=== PATIENT | male | born 1960 | race Caucasian/White ===

== ENCOUNTER → 2017-01-11 | Outpatient (CLI) | payer BC ==
[~2017-01-11] MED LIST: ATOR10TA82 PO; GLIP10TA3 PO; LISI-729 PO; MELO7.5T5 PO; METF-384 PO
[2017-01-11 18:28] LABS: INR 1.1 (0.9-1.1)
== END | disposition home or self-care (01) ==
LOC: C.LABSPEC 17:58
PROVIDERS: ATTEND Family Medicine
DX: Z79.01 Long term (current) use of anticoagulants (principal)

== ENCOUNTER → 2017-04-26 | Outpatient (CLI) | payer BC ==
[~2017-04-26] MED LIST changes: -ATOR10TA82 PO; +ATOR10TA88 PO
[2017-04-26 19:18] LABS: RED BLOOD COUNT 5.21 M/uL (4.7-6.1); WHITE BLOOD COUNT 10.51 K/uL (4.8-10.8)
[2017-04-26 19:19] LABS: BASO % 0.3 %; BASO ABS # 0.03 K/uL (0-0.2); COMPLETE YES; HEMATOCRIT 44.6 % (42-52); LYMPH % 26.8 %; LYMPH ABS # 2.82 K/uL (1.2-3.4); MEAN CELL VOLUME 85.6 fL (80-100); MEAN CORPUSCULAR HEMOGLOBIN 28.8 pg (25-34); MEAN CORPUSCULAR HGB CONC 33.6 g/dl (32-36); MEAN PLATELET VOLUME 10.1 fL (7.4-10.4); MONO % 9.5 %; NEUT % 59.4 %; PLATELET COUNT 298 K/uL (130-400)
[2017-04-26 19:35] LABS: ALB/GLOB RATIO 1.1 (0.9-2); ALKALINE PHOSPHATASE 101 U/L (45-117); ALT/SGPT 30 U/L (12-78); AST/SGOT 17 U/L (15-37); BLOOD UREA NITROGEN 19 mg/dl (7-18); BUN/CREATININE RATIO 15.8 (10-20); CARBON DIOXIDE 25 mmol/L (21-32); CHLORIDE 102 mmol/L (98-107); CHOLESTEROL 161 mg/dl (0-200); CHOLESTEROL/HDL RATIO 3.8; GLUCOSE 195 mg/dl (70-99); HDL CHOLESTEROL 42 mg/dl; LDL CHOLESTEROL CALCULATED 65 mg/dl; POTASSIUM 4.6 mmol/L (3.5-5.1); SODIUM 137 mmol/L (136-145); TRIGLYCERIDES 271 mg/dl (0-150); VERY LOW DENSITY LIPOPROT CALC 54 mg/dl
[2017-04-27 06:24] LABS: ESTIMATED AVERAGE GLUCOSE 232 mg/dl; HA1C FLAG Normal (Normal)
== END | disposition home or self-care (01) ==
LOC: C.LABSPEC 18:02
PROVIDERS: ATTEND Family Medicine
DX: E11.9 Type 2 diabetes mellitus without complications (principal); E78.2 Mixed hyperlipidemia; I10 Essential (primary) hypertension

== ENCOUNTER → 2017-09-09 | Outpatient (CLI) | payer BC ==
[~2017-09-09] MED LIST changes: +ATOR10TA82 PO; -ATOR10TA88 PO
[2017-09-09 18:17] LABS: BASO % 0.3 %; BASO ABS # 0.03 K/uL (0-0.2); EOS % 2.7 %; EOS ABS # 0.28 K/uL (0-0.5); HEMATOCRIT 40.8 % (42-52); HEMOGLOBIN 13.8 g/dL (14.0-18.0); IG# 0.08 K/uL (0.00-0.02); LYMPH % 21.9 %; LYMPH ABS # 2.28 K/uL (1.2-3.4); MEAN CELL VOLUME 85.9 fL (80-100); MEAN CORPUSCULAR HEMOGLOBIN 29.1 pg (25-34); MEAN CORPUSCULAR HGB CONC 33.8 g/dl (32-36); MEAN PLATELET VOLUME 9.5 fL (7.4-10.4); MONO % 10.9 %; MONO ABS # 1.14 K/uL (0.11-0.59); NEUT % 63.4 %; NEUT ABS # 6.62 K/uL (1.4-6.5); PLATELET COUNT 276 K/uL (130-400); WHITE BLOOD COUNT 10.43 K/uL (4.8-10.8)
[2017-09-09 18:32] LABS: ALBUMIN 3.6 gm/dl (3.4-5.0); ALT/SGPT 33 U/L (12-78); BLOOD UREA NITROGEN 15 mg/dl (7-18); CARBON DIOXIDE 26 mmol/L (21-32); CHOLESTEROL 129 mg/dl (0-200); CREATININE 0.92 mg/dl (0.60-1.40); GLUCOSE 264 mg/dl (70-99); POTASSIUM 3.8 mmol/L (3.5-5.1); SODIUM 134 mmol/L (136-145)
[2017-09-09 18:35] LABS: ALKALINE PHOSPHATASE 106 U/L (45-117); AST/SGOT 16 U/L (15-37); LDL CHOLESTEROL CALCULATED 67 mg/dl
[2017-09-10 07:38] LABS: HEMOGLOBIN A1C 9.4 % (4.5-5.6)
== END | disposition home or self-care (01) ==
LOC: C.LABSPEC 18:03
PROVIDERS: ATTEND Family Medicine
DX: E11.9 Type 2 diabetes mellitus without complications (principal); I10 Essential (primary) hypertension; E78.2 Mixed hyperlipidemia

== ENCOUNTER → 2017-09-21 | Outpatient (CLI) | payer BC | END | disposition home or self-care (01) | LOC: C.LABSPEC 17:53 | PROVIDERS: ATTEND Family Medicine | DX: E11.9 Type 2 diabetes mellitus without complications (principal); I10 Essential (primary) hypertension; E78.2 Mixed hyperlipidemia ==

== ENCOUNTER 2023-08-13 07:07 | Observation (INO) ==
--- NOTE | 2023-07-12 11:06 | PAT Medication Instructions ---
Medication Instructions Date of Service July 12, 2023 Home Medications aspirin 81 mg tablet 81 mg PO QPM atorvastatin 10 mg tablet 10 mg PO PM glipizide 2.5 mg tablet 10 mg PO QAM insulin degludec 100 unit/mL subcutaneous solution (Tresiba U-100 Insulin) 90 unit subcut HS insulin lispro 100 unit/mL subcutaneous solution (Humalog U-100 Insulin) 30 unit subcut USEASDIRECTD lisinopril 5 mg tablet 5 mg PO QPM meloxicam 15 mg tablet 15 mg PO QAM metformin 1,000 mg tablet 1,000 mg PO BID tirzepatide 7.5 mg/0.5 mL subcutaneous pen injector (Mounjaro) 7.5 mg subcut WK STOP 7 days before surgery tirzepatide 7.5 mg/0.5 mL subcutaneous pen injector (Mounjaro) 7.5 mg subcut WK ASK your surgeon for instructions meloxicam 15 mg tablet 15 mg PO QAM ASK your prescriber and surgeon aspirin 81 mg tablet 81 mg PO QPM DO NOT take the morning of surgery glipizide 2.5 mg tablet 10 mg PO QAM insulin lispro 100 unit/mL subcutaneous solution (Humalog U-100 Insulin) 30 unit subcut USEASDIRECTD metformin 1,000 mg tablet 1,000 mg PO BID Take evening before surgery atorvastatin 10 mg tablet 10 mg PO PM insulin degludec 100 unit/mL subcutaneous solution (Tresiba U-100 Insulin) 90 unit subcut HS lisinopril 5 mg tablet 5 mg PO QPM metformin 1,000 mg tablet 1,000 mg PO BID Other Notes NOTHING TO EAT OR DRINK AFTER MIDNIGHT. If you have any questions please call us at [phone] or [phone] or or [phone]
--- NOTE | 2023-07-19 10:47 | Anesthesiology Consultation ---
Date of Service July 19, 2023 Assessment & Plan (1) Encounter for pre-operative examination: Chart Review Chart Review: Acceptable Risk for Surgery (pending cardio clearance ) and Patient seen in Pre Admission Testing - Discussed preop EKG with Dr. Cuba- recommends cardio evaluation- patient scheduled to see [facility] 08/06/23 at 1130am with Gold Calloway PA-C ([place] so information left with ) - Check BSG AM DOS - Mounjaro instructions: Patient takes on (Fridays). Patient informed at PAT visit to stop 7 days prior to surgery- voiced understanding. Patient advised to check with prescriber to see if alternative diabetic management changes recommended while holding Mounjaro- if so, patient to call back to PAT to update chart and discuss if any further preop medication instructions needed. Patient's last dose of Mounjaro will be 08/06/23- will be off Mounjaro x 7 days by DOS 08/13/23. - Patient is NOT an OPJ candidate Per PAT appt on 07/19/23, no recent illness/disease exposures, illness related symptoms, or recent illness/disease positive tests. Will leave to surgeon's discretion if preop Covid testing needed Teaching & Discussion Pre-Anesthesia Teaching/Discussion Notes: Instructed NPO after midnight before surgery,except medications with 15 cc of water. Medication instructions provided according to the [facility] guidelines. History Surgery Operation Date: 08/13/23 07:00 Proposed Procedures p Left Total Knee Arthroplasty - Ulises Gonzalez MD Height/Weight Height: 5 ft 11 in Weight: 154.9 kg Allergies Allergy/AdvReac Type Severity Reaction Status Date / Time amoxicillin Allergy Hives Verified 07/12/23 10:05 Medications Home Medications Medication Instructions Recorded Confirmed Last Taken aspirin 81 mg tablet 81 mg PO QPM 07/12/23 07/12/23 Unknown atorvastatin 10 mg tablet 10 mg PO PM 07/12/23 07/12/23 Unknown glipizide 2.5 mg tablet 10 mg PO QAM 07/12/23 07/12/23 Unknown insulin degludec 100 unit/mL 90 unit subcut HS 07/12/23 07/12/23 Unknown subcutaneous solution (Tresiba U-100 Insulin) insulin lispro 100 unit/mL 30 unit subcut USEASDIRECTD 07/12/23 07/12/23 Unknown subcutaneous solution (Humalog U-100 Insulin) lisinopril 5 mg tablet 5 mg PO QPM 07/12/23 07/12/23 Unknown meloxicam 15 mg tablet 15 mg PO QAM 07/12/23 07/12/23 Unknown metformin 1,000 mg tablet 1,000 mg PO BID 07/12/23 07/12/23 Unknown tirzepatide 7.5 mg/0.5 mL 7.5 mg subcut WK 07/12/23 07/12/23 Unknown subcutaneous pen injector (Mounjaro) Past Medical History Medical History (Updated 07/26/23 @ 13:55 by Lyndsay Miner PA-C) History of gout No recent flares Lower back pain Chronic HLD (hyperlipidemia) History of DVT (deep vein thrombosis) RLE approx 5 years ago. unk etiology. treated with AC x several months- now only on ASA 81mg. Sleep apnea CPAP DM type 2 (diabetes mellitus, type 2) Glucose controlled per patient Exercise / Class Metabolic Activity III < 4 Walking/Shop/Light housework (one flight of stairs - no chest pain, mild SOB ) Past Surgical History Surgical History History of wisdom tooth extraction History of hernia repair History of colonoscopy Past Anesthesia History No Hx of Anesthesia Complications and No Family Hx of Anesthesia Complications History of PONV No Hx of PONV and No Hx of Motion Sickness Social History Smoking Status: Never smoker Do You Dip or Chew Tobacco: No (Quit 1.5 years ago ) Hx Alcohol Use: Yes Alcohol type: beer alcohol intake frequency: a few times a week Hx Substance Use: No substance use type: does not use Review of Systems Patient denies chest pain, shortness of breath at rest, reflux, cough, wheezing, palpitations. No hx of seizures, stroke, NE. No hx of blood transfusions Physical Exam Vital Signs VITALS BP 132/80 P 75 TEMP 97.7 SP02 94% 16RESP Constitutional no acute distress ENMT Mouth: no TMJ clicking Thyromental Distance: > or= 3.5 Finger Breadths (3.5) Mallampati Class: III Neck + short neck; neck extension not limited Respiratory normal respiratory effort; no respiratory distress Auscultation: lungs clear to auscultation bilaterally; no wheezes Cardiovascular Rate/Rhythm: regular rate and regular rhythm Heart Sounds: no murmur Vessels: no carotid bruit Musculoskeletal Spine: no pain with cervical ROM Extremities: extremities normal to inspection Psychiatric Orientation: alert Lab Results Anesthesia Preop Results Results Anesthesia Widget: WBC 9.89 K/ul (4.8-10.8) 07/19/23 Hgb 14.0 g/dl (14.0-18.0) 07/19/23 Hct 41.8 % (42.0-52.0) L 07/19/23 Plt 300 K/uL (130-400) 07/19/23 Na 136 mmol/L (136-145) 07/19/23 K 4.6 mmol/L (3.5-5.1) 07/19/23 Cl 102 mmol/L (98-107) 07/19/23 CO2 29 mmol/L (21-32) 07/19/23 BUN 14 mg/dl (6-23) 07/19/23 Creat 0.87 mg/dl (0.6-1.4) 07/19/23 Glucose Level 116 mg/dl (70-99(Fasting)) H 07/19/23 PT 11.3 Seconds (9.0-12.0) 07/19/23 PTT 26.8 Seconds (21.0-31.0) 07/19/23 INR 1.0 (0.9-1.1) 07/19/23 HA1c 7.9 % (4.5-5.6) H 07/19/23 Blood Type A Positive 07/19/23 Antibody Screen NEGATIVE 07/19/23 Testing Electrocardiogram Date: 07/19/23 Findings: + NSR @ (69bpm) Left axis deviation Poor R was progression, consider NE vs lead placement vs LVH Chest X-Ray Date: 07/19/23 Findings: + NAD Other Testing Venous Doppler 04/07/23= There is no sonographic evidence of deep venous thrombosis in the right or left lower extremity. Nonocclusive and chronic appearing superficial venous thrombus in the right lesser saphenous vein.
--- NOTE | 2023-08-06 07:50 | History & Physical Report ---
Date of Service August 06, 2023 Assessment & Plan (1) Degenerative arthritis of knee, bilateral: 63-year-old gentleman with several medical comorbidities with advanced bilateral knee DJD left side a bit worse radiographically than the right. He has been through extensive conservative treatment which is become less successful over time. He would like to proceed with knee replacement surgery. Plan: We discussed treatment options. Do not think he is a good candidate due to both knees at the same time. After extensive discussion we will going proceed with a left knee replacement. He does have history of a DVT in the past. He did have a recent ultrasound which shows no occlusive disease and some nonocclusive superficial disease. Proceed with a left knee replacement. The risks Mente this procedure explained the patient clued but not limited to DVT PE infection neurological and vascular bleeding palm pain limb range of motion test is fairly of symptoms incomplete relief of symptoms exceptor. Patient understands and desires to proceed. Informed consent is obtained. Continue Xarelto for DVT prophylaxis. He is planning going to [facility] for rehab. Sliding scale insulin coverage. He is scheduled to see the emission specialist in [facility] on August 06 of this year and all this pending cardiac clearance. History of Present Illness Chief Complaint: . Bilateral knee pain, discomfort and stiffness. Primary Care Provider: Elton Caruso DO . The patient is a 63-year-old gentleman who presents for surgical treatment of his knees. He had a long gradual progressive history of knee pain discomfort is gotten significantly worse over the past 3 years. She has been through extensive conservative treatment including steroid shots and viscosupplementation which become less successful over time. He is gone through a period of attempted weight loss without much success due to his limited mobility. Both knees are hurting him. He now like to proceed with surgical treatment. Of note, the patient has a history of a DVT in his right lower leg in the past. Is got no known clotting disorder. He did have a preoperative ultrasound which shows no DVT but some chronic nonocclusive thrombosis in the right lesser saphenous vein. Allergies Allergy/AdvReac Type Severity Reaction Status Date / Time amoxicillin Allergy Hives Verified 07/12/23 10:05 Home Medications Medication Instructions Recorded Confirmed Type aspirin 81 mg tablet 81 mg PO QPM 07/12/23 07/12/23 History atorvastatin 10 mg tablet 10 mg PO PM 07/12/23 07/12/23 History glipizide 2.5 mg tablet 10 mg PO QAM 07/12/23 07/12/23 History insulin degludec 100 unit/mL 90 unit subcut HS 07/12/23 07/12/23 History subcutaneous solution (Tresiba U-100 Insulin) insulin lispro 100 unit/mL 30 unit subcut USEASDIRECTD 07/12/23 07/12/23 History subcutaneous solution (Humalog U-100 Insulin) lisinopril 5 mg tablet 5 mg PO QPM 07/12/23 07/12/23 History meloxicam 15 mg tablet 15 mg PO QAM 07/12/23 07/12/23 History metformin 1,000 mg tablet 1,000 mg PO BID 07/12/23 07/12/23 History tirzepatide 7.5 mg/0.5 mL 7.5 mg subcut WK 07/12/23 07/12/23 History subcutaneous pen injector (Mounjaro) Past Med/Surg History Medical History History of gout No recent flares Lower back pain Chronic HLD (hyperlipidemia) History of DVT (deep vein thrombosis) RLE approx 5 years ago. unk etiology. treated with AC x several months- now only on ASA 81mg. Sleep apnea CPAP DM type 2 (diabetes mellitus, type 2) Glucose controlled per patient Surgical History History of wisdom tooth extraction History of hernia repair History of colonoscopy Social History Smoking Status: Never smoker Second Hand Exposure: Yes (father smoked and currently smokes); Do You Dip or Chew Tobacco: No (Quit 1.5 years ago ); Hx Alcohol Use: Yes Alcohol type: beer Hx Substance Use: No Preferred Language: Haitian Communication Ability: Effective Claim Investigator Required: No Beliefs That Will Affect Care: None Current Living Situation: Spouse Feels Safe at Home: Yes Assistive Devices: Glasses Review of Systems All systems reviewed & are unremarkable except as noted in HPI & below. Physical Exam . Physical examination reveals a pleasant elderly male. He ambulates independently. Examination of the left knee reveals a slight valgus alignment to his knee. A small knee effusion. Range of motion is near full extension on 25 degrees of flexion. Is got some patellofemoral crepitance. No instability. No pain with hip motion. Examination of the right knee reveals minimal knee effusion. Range of motion 0- 1 25. No instability. No pain with hip motion. Constitutional WD/WN, vitals as above Neck trachea midline, no thyromegaly Respiratory normal respiratory effort, lungs clear to auscultation Cardiovascular RRR, no murmur, no edema Gastrointestinal (Abdomen) normal bowel sounds, soft, nontender, no hepatosplenomegaly Results & Data Results & Data Laboratory Results . Diagnostic Findings . X-rays of both knees were reviewed. Shows advanced bilateral knee DJD. The the left side is a bit worse than the right. Is got pretty extensive tricompartment disease. Days got patellofemoral arthritis as well. He is got some chondrocalcinosis. PG Care Time/CCT Total # of Minutes Spent Total Time Spent with Patient: Total time spent is greater than 50% in coordination of care (as documented) at patient's floor/unit and/or counseling patient: Coding Level of Care Code None Diagnoses Degenerative arthritis of knee, bilateral M17.0
[~2023-08-13 07:07] MED LIST changes: +ACETAMINOPHEN 500 MG TAB PO SCH; -ATOR10TA82 PO; +BUPIVACAINE 0.25% PF 30 ML VIAL ONE; +BUPIVACAINE 0.5 % 5 MG/1 ML PF 10ML VIAL ONE; +BUPIVACAINE LIPOSOME/PF 266 MG, BUPIVACAINE/EPINEPHRINE 50 ML, SODIUM CHLORIDE 0.9% PF ... INFIL SCH; +CeleBREX 200 MG CAP PO SCH; +DEXAMETHASONE SOD INJ 4 MG/ML VIAL ONE; +EPINEPHrine INJ 1 MG/ML AMP ONE; +FAMOTIDINE 20 MG TAB PO SCH; -GLIP10TA3 PO; +LIDOCAINE 2% 2 ML VIAL/AMP(20MG/ML) INFIL ONE; -LISI-729 PO; +LR 500ML BOLUS, THEN 15ML/HR IV SCH; +LR 60ML/HR IV SCH; -MELO7.5T5 PO; -METF-384 PO; +METOCLOPRAMIDE HCL 10 MG TABLET PO SCH; +PROPOFOL IV EMULSION 10 MG/ML 20 ML VIAL IV ONE; +Scopolamine 1 MG TDSY TD SCH; +TRANEXAMIC ACID 1,000 MG **IV Intra-op IV SCH
[2023-08-13] MEDS ORDERED: fentaNYL citrate PF 100 MCG/2 ML VIAL ONE (07:24)
[2023-08-13] MEDS ORDERED: MIDAZOLAM HCL 1 MG/ML 2ML VIAL ONE (07:24)
[2023-08-13] MEDS ORDERED: PROMETHAZINE HCL 6.25 MG in SODIUM CHLORIDE 0.9% 50 ML IV PRN (07:57)
[2023-08-13] MEDS ORDERED: ePHEDrine sulfate 50 MG/ML AMP IV PRN (07:57)
[2023-08-13] MEDS ORDERED: ATROPINE SULFATE 0.1 MG/ML 10ML SYR IV PRN (07:57)
[2023-08-13] MEDS ORDERED: ONDANSETRON INJ 2 MG/ML 2 ML VIAL IV PRN ×2 (07:57→12:35)
[2023-08-13] MEDS ORDERED: fentaNYL citrate PF 100 MCG/2 ML VIAL IV PRN (07:57)
[2023-08-13] MEDS ORDERED: ceFAZolin 2,000 MG/15 ML IV PUSH IV ONE (08:16)
[2023-08-13] MEDS ORDERED: SODIUM CHLORIDE 0.9% PF INJ 10 ML VIAL ONE (09:20)
[2023-08-13] MEDS ORDERED: BUPIVACAINE/EPINEPHRINE 0.25% 1:200,000 30 ML VIAL ONE (09:20)
[2023-08-13] MEDS ORDERED: BUPIVACAINE LIPOSOME 1.3% 266 MG/20 ML VIAL ONE (09:21)
[2023-08-13] MEDS ORDERED: VANCOMYCIN HCL 1000MG/20ML VIAL ONE (09:33)
[2023-08-13] MEDS ORDERED: SODIUM CHLORIDE 0.9% PF 50 ML VIAL ONE (09:33)
--- NOTE | 2023-08-13 09:36 | History & Physical Bridge Note ---
Date of Service August 13, 2023 History & Physical Bridge Note I have examined the patient, reviewed the History & Physical and in the interval since the performance of the History & Physical I have noted the following changes of clinical significance: no changes noted
[2023-08-13] MEDS ORDERED: KETOROLAC 30 MG/ML VIAL ONE (09:40)
[2023-08-13] MEDS ORDERED: ceFAZolin 330 MG/ML 1 GM VIAL ONE (09:40)
[2023-08-13] MEDS ORDERED: ONDANSETRON INJ 2 MG/ML 2 ML VIAL ONE (09:41)
[2023-08-13] MEDS ORDERED: GLYCOPYRROLATE 0.2 MG/ML VIAL ONE (09:42)
[2023-08-13] MEDS ORDERED: Nursing to Pharmacy Communication SCH (09:45)
[2023-08-13] MEDS ORDERED: PHENYLEPHRINE HCL 10 MG/ML VIAL ONE (09:45)
[2023-08-13] MEDS ORDERED: ePHEDrine sulfate 50 MG/ML AMP ONE (09:45)
[2023-08-13] MEDS ORDERED: PROPOFOL IV EMULSION 10 MG/ML 20 ML VIAL IV ONE (10:14)
--- NOTE | 2023-08-13 11:42 | Operative Report ---
PG Post Operative Report Pre & Post Diagnosis Operation Date: 08/13/23 08:50 Pre-Op Diagnosis: Left Knee Advanced Degenerative Joint Disease Post-Op Diagnosis: Left Knee Advanced Degenerative Joint Disease I identified the patient and participated in the time-out.: Yes Procedure Operation Date: 08/13/23 08:50 Actual Procedures p Left Total Knee Arthroplasty(Left) - Ulises Gonzalez MD Surgeon Ulises Gonzalez MD [employer] Yusuf Washburn PA-C Estimated Blood Loss 50 Findings Consistent with Post-Op Diagnosis Operative findings revealed advanced left knee tricompartment DJD with grade 4 changes in all 3 compartments most severe in the lateral and patellofemoral compartments. He had osteophytes in all 3 compartments. Moderate-sized joint effusion. Slight fixed valgus deformity to his knee. Specimens Left knee sent for pathology. Anesthesia Type Spinal MAC Complications none Disposition Accompanied Patient To Recovery: No Indications Patient is a 63-year-old gentleman who had a long history of bilateral knee pain discomfort left side greater than right. Is been through extensive conservative treatment over the years with became less successful over time. X-rays show advanced left knee DJD. Elected proceed with total knee arthroplasty. Description of Procedure Operative implants consist of: 1 Biomet Vanguard size 70 left posterior stabilized femoral component. 2. Biomet size 79 tibial tray. 3. 10 mm post stabilized polyethylene insert. 4. 34 x 8-1/2 all poly patella. The patient was taken the operating, identified, placed on the operating table in the supine position. All contact areas were appropriately padded. IV antibiotic 5 by anesthesia team. Spinal anesthetic and adductor canal block had been provided in the holding area. A left thigh tent was then placed. Left lower extremities then prepped and draped in usual sterile fashion. The left leg was elevated exsanguinated with use of an Esmarch and the turn was placed at 300 mmHg. An anterior approach the left knee was then performed through a longitudinal incision centered over the patella. Sharp dissection was carried through subcutaneous tissue down the extensor mechanism. A medial parapatellar arthrotomy incision was made. Some subperiosteal dissection was carried out medially. The fat pad was resected from Neath patella tendon. Lateral patellofemoral ligament was released. Patella subluxated laterally the knee was flexed. The osteophyte taken off distal femur. The ACL and PCL were then released from distal femur and the tibia subluxated anteriorly. The external treatment line jig was then placed in the interface the tibia and adjusted 12 mm medially. Proximal tibial cut was made to move about the 3 to 4 mm bone from the medial side. The tibia was then sized to a size 79. Attention drawn the femur. The distal femur examined the sharp drop with intramedullary canal was suction. A left 5 degree valgus cutting guide was placed. Distal femoral cutting block was pinned in place. Distal femoral cut was made to take an additional 3 mm of bone off distal femur. I then brought the knee out in extension I did release some of the lateral and anterior aspect of the IT band in order to equalize extension gap. The knee was then flexed. The femur was then sized to a size 70. The AP cutting block was pinned parallel to the epicondylar axis which was 10 degrees of external rotation which maximized out the guide. The AP cutting block was placed and the anterior cut, anterior chamfer, posterior cut, posterior chamfer cuts were made to the box cutting guide was placed in just slight lateral and the box cut was made. The knee was flexed. The remnants of the medial and lateral menisci were excised. The osteophytes taken off the posterior aspect the femur. Trial femoral component was placed for the tibial tray was pinned Mami external rotation and the drill and stem punch used. Defect in proximal tibia for the tibial tray. Knee was then trialed and the 10 mm insert fit most appropriately. Attention drawn the patella. The patella was cleaned of all soft tissues. Patella thickness measured 24 mm in thickness and was cut down to 14. Was sized to a size 34 patella. I did downsize this slightly in order to try and optimize patella tracking. Lug holes were drilled for the 34 patella. The lateral osteophyte was removed. Patella button was placed. Knee was taken through range of motion of patella tracked fairly well with the end no thumbs test. I was happy with his patella tracking. Attention drawn to placing permanent components. Nupathe all trial components were removed. A bone plug was placed in the distal femur limit blood loss. Double batch Palacos G cement was mixed. I did place an additional gram of vancomycin in the cement due to his fairly large size/BMIs/diabetes and therefore increased risk for infection. A Biomet Vanguard size 70 left Po stabilized femoral component, size 79 tibial tray, 10 mm post stabilized polyethylene insert, and a 34 x 8 and half all poly patella then cemented in place. Knee was brought out into full extension till cement hardened. Final cement check was then performed. The pericapsular tissues were injected with a total of 100 cc of combination of 20 cc of Exparel, 30 cc of normal saline, 50 cc of quarter percent Marcaine with epinephrine. Patient did receive 1 g tranexamic acid. The tourniquet was let down for final tourniquet time of 67 minutes. Hemostasis assured use electrocautery. Extensor Meclomen closed with combination 1 PDS suture #1 Vicryl suture in [id number] fashion. Extensor mechanism checked found to be intact and subcutaneous tissues then closed with 2 Dexon suture in a buried interrupted fashion skin was closed skin knae. Leg was then cleaned and dried and sterile dressing with Xeroform, 4 fours, sterile cast padding, Ángel bandage were applied. Patient then transferred to the recovery room in stable condition. Patient tolerated the procedure well and there were no complications. Yusuf Washburn, my physician assistant produce manager, was present for the entire procedure. His assistance was essential and required for appropriate patient positioning, prepping and draping, surgical exposure, performing the technical details of the operation, placement the implants, closure of the wound, and placement of the sterile bandage. I attest to the content of the Intraoperative Record and any orders documented therein. Any exceptions are noted below.
--- NOTE | 2023-08-13 12:07 | XRay Report ---
LEFT KNEE 2 VIEWS History: Left total knee arthroplasty. Degenerative arthritis. Postop. FINDINGS: The patient is status post a left total knee arthroplasty. The hardware is intact. No fract ure or dislocation. Skin kane are in place. IMPRESSION: Left total knee arthroplasty. No evidence for hardware complication. ACT 112: Negative or not required by law. Electronically signed by: Tanner Prasad M.D. 08/13/2023 12:06 PM
--- NOTE | 2023-08-13 12:26 | Anesthesiology Progress Note ---
Date of Service August 13, 2023 Anesthesia Post Procedure Vital Signs Vital Signs: Temp Pulse Pulse Resp BP Pulse Ox O2 Del Method 08/13/23 12:15 84 20 127/70 97 Nasal Cannula 08/13/23 12:00 36.5 C 91 H 24 107/49 L 96 Nasal Cannula 08/13/23 11:50 86 22 110/61 99 Nasal Cannula 08/13/23 11:40 93 H 17 99/55 L 99 Nasal Cannula 08/13/23 11:33 36.7 C 95 H 17 101/53 L 96 Nasal Cannula 08/13/23 07:28 37.2 C 92 H 20 148/104 H 96 Room Air O2 Flow Rate 08/13/23 12:15 2 08/13/23 12:00 2 08/13/23 11:50 2 08/13/23 11:40 2 08/13/23 11:33 2 08/13/23 07:28 Transfer of Care Handoff Completed per policy Notes Mental Status: alert / awake / arousable Patient Amnestic to Procedure: Yes Nausea / Vomiting: adequately controlled Pain: adequately controlled Airway Patency, RR, SpO2: stable & adequate BP & HR: stable & adequate Hydration State: stable & adequate Neuraxial Anesthesia: was administered and sensory block is resolving Anesthetic Complications: no major complications apparent and Pt Satisfied with anesthetic care
[2023-08-13] MEDS ORDERED: NALOXONE HCL 0.4 MG/1 ML VIAL/CARP IV PRN (12:35)
[2023-08-13] MEDS ORDERED: GLUCOSE 10 TAB/TUBE PO PRN ×2 (12:35→13:30)
[2023-08-13] MEDS ORDERED: NON-FORMULARY MEDICATION (Insulin Lispro [Humalog U-100 Insulin] 100 unit/mL Solution) SQ SCH (12:35)
[2023-08-13] MEDS ORDERED: MAGNESIUM HYDROXIDE SUSP 30 ML UDC PO PRN (12:35)
[2023-08-13] MEDS ORDERED: METOCLOPRAMIDE HCL INJ 5 MG/ML 2 ML VIAL IV PRN (12:35)
[2023-08-13] MEDS ORDERED: bisacodyL 10 MG SUPP PR PRN (12:35)
[2023-08-13] MEDS ORDERED: CARBOHYDRATES FOR HYPOGLYCEMIA PO PRN ×2 (12:35→13:30)
[2023-08-13] MEDS ORDERED: PHARMACY GLYCEMIC MGMT CONSULT PRN (12:35)
[2023-08-13] MEDS ORDERED: GLUCAGON FOR INJ 1 MG VIAL SQ PRN (12:35)
[2023-08-13] MEDS ORDERED: NON-FORMULARY MEDICATION (Tirzepatide [Mounjaro] 7.5 mg/0.5 mL Pen Injector) SQ SCH (12:35)
[2023-08-13] MEDS ORDERED: GLUCOSE 40% GEL 15 GM TUBE PO PRN ×2 (12:35→13:30)
[2023-08-13] MEDS ORDERED: HYDROmorphone INJ 0.5 MG/0.5 ML SYR IV PRN (12:35)
[2023-08-13] MEDS ORDERED: ALUMINUM/MAGNESIUM SUSP 30 ML UDC PO PRN (12:35)
[2023-08-13] MEDS ORDERED: diphenhydrAMINE Capsule 25 MG CAP PO PRN (12:35)
[2023-08-13] MEDS ORDERED: DEXTROSE 50% 50 ML SYRINGE IV PRN ×2 (12:35→13:30)
[2023-08-13] MEDS ORDERED: GLUCAGON FOR INJ 1 MG VIAL IM PRN (13:30)
[2023-08-13] MEDS: INSULIN ASPART PER UNIT CHARGE SC SCH ×3 (14:02→21:00)
[2023-08-13] MEDS: ACETAMINOPHEN 500 MG TAB PO SCH ×2 (14:18→21:03)
[2023-08-13] MEDS: KETOROLAC 30 MG/ML VIAL IV SCH ×2 (14:19→18:43)
[2023-08-13] MEDS: SODIUM CHLORIDE 0.9% 1,000 ML IV SCH ×2 (14:19→21:52)
--- NOTE | 2023-08-13 14:28 | Pharmacy Report ---
Pharmacy Glycemic Short Note 2 - Date of Service August 13, 2023 - Glycemic Short BSG Results (Last 24 hours): 08/13/23 08/13/23 08:03 11:33 POC Glucose 142 H 130 H OUTPATIENT ANTIDIABETIC REGIMEN: * Tresiba 90 units SQ HS * Humalog 30 units TIDM * glipizide 10mg PO daily * metformin 1gm PO BID * tirzepatide 7.5mg SQ weekly HbA1c: 7.96% (07/19/23) ASSESSMENT: * Pt is a 63 year old male admitted POD#0 left total knee arthroplasty. History of DM2 on multiple anti hyperglycemic agents at home. Pharmacy consulted to assist with glycemic management inpatient. * BSGs 142-130mg/dL pre and post op. Diet ordered. * Dex 4mg IV administered intra-op and 8mg PO ordered X 1 tomorrow. * Will begin scaled Lantus BID depending on BSG tonight (+/- 20% of home dose divided BID) given ongoing steroids. Novolog severe stress scale ACHS with overnight checks. PLAN FOR INPATIENT GLYCEMIC CONTROL: * Hold outpatient oral diabetes medications * Basal insulin * Lantus 35/45/55 units SQ BID depending on BSG * Bolus insulin * NovoLog per scale ACHS or Q6hrs while NPO * Goal Range: Low 110 mg/dL - High 140 mg/dL * Correction Factor: 15 mg/dL/unit * Nutritional / Prandial insulin per carb ratio of 1 unit per 5 grams CHO consumed
[2023-08-13] MEDS: Scopolamine CHECK PATCH PLACEMENT SCH ×2 (17:28→23:45)
[2023-08-13] MEDS: ASCORBIC ACID 500 MG TAB PO SCH (17:28)
[2023-08-13] MEDS: ceFAZolin 2000MG 2,000 MG/15 ML SYR IV SCH (17:34)
[2023-08-13] MEDS ORDERED: TRANEXAMIC ACID / 0.7% NACL 1,000 MG/100 ML BAG IV SCH (18:00)
[2023-08-13] MEDS ORDERED: [UNRECOGNIZED DRUG - OTHER] SQ SCH (21:00)
[2023-08-13] MEDS ORDERED: LANTUS PER UNIT CHARGE SC SCH (21:00)
[2023-08-13] MEDS ORDERED: SENNA 8.6 MG TAB PO SCH (21:00)
[2023-08-13] MEDS ORDERED: INSULIN DEGLUDEC 100 UNIT/ML SQ SCH (21:00)
[2023-08-13] MEDS: ATORVASTATIN 10 MG TAB PO SCH (21:03)
[2023-08-13] MEDS: DOCUSATE SODIUM 100 MG CAP PO SCH (21:03)
[2023-08-13] MEDS: lisinopril 5 MG TAB PO SCH (21:03)
[2023-08-13] MEDS: ASPIRIN 81 MG ECTAB PO SCH (21:03)
[2023-08-13] MEDS: SENNA 8.6 MG TAB PO SCH (21:03)
[2023-08-14] MEDS: INSULIN ASPART PER UNIT CHARGE SC SCH ×6 (00:09→20:31)
[2023-08-14] MEDS: ceFAZolin 2000MG 2,000 MG/15 ML SYR IV SCH (01:15)
[2023-08-14] MEDS: KETOROLAC 30 MG/ML VIAL IV SCH ×2 (01:15→05:46)
[2023-08-14 07:07] LABS: Hematocrit (blood only) 35.9 % (42.0-52.0); Hemoglobin 11.8 g/dl (14.0-18.0); Mean Corpuscular Hemoglobin 27.5 pg (25.0-34.0); Mean Corpuscular Hgb Conc 32.9 g/dL (32.0-36.0); Mean Corpuscular Volume 83.7 fL (80.0-100.0); Mean Platelet Volume 9.3 fL (9.4-12.4); Platelet Count 286 K/uL (130-400); RDW Coefficient of Variation 13.7 % (11.5-14.5); RDW Standard Deviation 41.7 fL (36.4-46.3); Red Blood Count 4.29 M/uL (4.70-6.10); White Blood Count 16.66 K/ul (4.8-10.8)
--- NOTE | 2023-08-14 07:32 | Surgery Progress Note ---
Date of Service August 14, 2023 Assessment & Plan (1) Status post left knee replacement: Plan: 63-year-old gentleman postop day 1 from left knee replaced doing well. Pain is controlled. He is neurologically intact. Plan: 1. DVT prophylaxis including thigh-high teds SCDs and starting Xarelto today for 30 days #2 PT OT. Weight-bear as tolerated left total knee protocol. 3. Pain control doing okay with current rate pain regimen. 4. Disposition he is Hoping to be discharged to a rehab. He is open to go to [place] Admission and Anticipated Discharge Date Admission Date: August 13, 2023 Subjective 63-year-old gentleman postop day 1 from left knee replacement. He is doing pretty well. Pains controlled. Reasonable night. No chest pain or shortness of breath. Not feeling dizzy or lightheaded. Physical Exam Physical Exam: Examination of the left knee reveals the dressing be clean dry and intact. He can dorsiflex and plantarflex his foot appropriately. There is no drainage. He can do a straight leg raise with the quite a bit of effort. Constitutional: WD/WN, vitals as above Respiratory: normal respiratory effort, lungs clear to auscultation Cardiovascular: RRR, no murmur, no edema Gastrointestinal (Abdomen): normal bowel sounds, soft, nontender, no hepatosplenomegaly Results & Data Vital Signs (Past 12 Hours) Vital Signs Temp Pulse Resp BP Pulse Ox O2 Del Method 08/14/23 04:13 36.7 C 77 16 125/67 96 Room Air 08/13/23 23:00 36.8 C 75 18 150/80 H 95 Room Air Laboratory Results Hemoglobin is 11.8. Hematocrit is 35.8. Electrolytes are pending. PG Care Time/CCT Total # of Minutes Spent Total Time Spent with Patient: Total time spent is greater than 50% in coordination of care (as documented) at patient's floor/unit and/or counseling patient: Coding Level of Care Code 31343 Post Operative Follow-Up Diagnoses Status post left knee replacement Z96.652
[2023-08-14 07:38] LABS: BUN Creatinine Ratio 18.4 (10-20); Calcium 8.5 mg/dl (8.6-10.3); Creatinine Clr Calc Pharmacy 110.7 ml/min; Est GFR (African American) 89.2 ml/min; Est GFR (Non-African American) 76.9 ml/min; Potassium 4.2 mmol/L (3.5-5.1)
[2023-08-14] MEDS: ASCORBIC ACID 500 MG TAB PO SCH ×2 (07:46→17:08)
[2023-08-14] MEDS: MULTIVITAMIN TAB PO SCH (07:46)
[2023-08-14] MEDS: TAMSULOSIN HCL 0.4 MG CAP PO SCH (07:47)
[2023-08-14] MEDS: Scopolamine CHECK PATCH PLACEMENT SCH ×3 (07:47→23:16)
[2023-08-14] MEDS: DOCUSATE SODIUM 100 MG CAP PO SCH ×2 (07:47→20:32)
[2023-08-14] MEDS: ACETAMINOPHEN 500 MG TAB PO SCH ×3 (07:47→20:31)
[2023-08-14] MEDS ORDERED: dexAMETHasone 4 MG TAB PO SCH (08:00)
[2023-08-14] MEDS ORDERED: NovoLIN-N (NPH) PER UNIT CHARGE SQ ONE (09:00)
[2023-08-14] MEDS ORDERED: GLIPIZIDE 2.5 MG PO SCH (09:00)
[2023-08-14] MEDS: RIVAROXABAN 10 MG TABLET PO SCH (12:24)
[2023-08-14] MEDS: LANTUS PER UNIT CHARGE SC SCH (20:31)
[2023-08-14] MEDS: SENNA 8.6 MG TAB PO SCH (20:32)
[2023-08-14] MEDS: lisinopril 5 MG TAB PO SCH (20:32)
[2023-08-14] MEDS: ATORVASTATIN 10 MG TAB PO SCH (20:32)
[2023-08-14] MEDS: ASPIRIN 81 MG ECTAB PO SCH (20:32)
[2023-08-15] MEDS: oxyCODONE HCL IR 5 MG TAB (IMMEDIATE RELEASE) PO PRN ×4 (02:26→20:59)
[2023-08-15] MEDS: ASCORBIC ACID 500 MG TAB PO SCH ×2 (07:38→17:11)
[2023-08-15] MEDS: DOCUSATE SODIUM 100 MG CAP PO SCH ×2 (07:38→21:00)
[2023-08-15] MEDS: TAMSULOSIN HCL 0.4 MG CAP PO SCH (07:39)
[2023-08-15] MEDS: MULTIVITAMIN TAB PO SCH (07:39)
[2023-08-15] MEDS: RIVAROXABAN 10 MG TABLET PO SCH (07:39)
[2023-08-15] MEDS: ACETAMINOPHEN 500 MG TAB PO SCH ×3 (07:39→21:00)
[2023-08-15] MEDS: Scopolamine CHECK PATCH PLACEMENT SCH ×3 (07:40→23:17)
--- NOTE | 2023-08-15 07:55 | Surgery Progress Note ---
Date of Service August 15, 2023 Assessment & Plan (1) Status post left knee replacement: Plan: 63-year-old gentleman postop day 2 from left knee replacement doing okay. Have a bit more pain today which is not unusual. He is neurologically intact. The pain medicine seems to be working. Plan: 1. DVT prophylaxis including thigh-high teds, SCDs, baby aspirin twice a day. 2. PT/OT. Weight-bear as tolerated left total protocol. 3. Pain control. Doing okay with current pain regimen. 4. Disposition he is hoping to go to [place] for a brief rehab stay. Acceptance is pending. He is medically stable and ready to go whenever get approval/acceptance Admission and Anticipated Discharge Date Admission Date: August 13, 2023 Subjective 63-year-old gentleman postop day 2 from left knee replacement. He is doing okay. Had a quite a bit of pain last night had asked for some additional pain medicine. Based on bit better this morning but still more painful than yesterday. No chest pain or shortness of breath. Isolated knee and thigh pain. Physical Exam Physical Exam: Physical examination was a pleasant middle-age male. He is sitting on bed. Does not look particularly uncomfortable. Examination of left leg reveals do well aligned. The dressing is clean dry and intact. He can dorsiflex and plantarflex his foot appropriately. He struggles with doing a straight leg raise. He is neurologically intact Respiratory: normal respiratory effort, lungs clear to auscultation Cardiovascular: RRR, no murmur, no edema Gastrointestinal (Abdomen): normal bowel sounds, soft, nontender, no hepatosplenomegaly Results & Data Vital Signs (Past 12 Hours) Vital Signs Temp Pulse Resp BP Pulse Ox O2 Del Method 08/15/23 06:24 36.7 C 76 20 114/74 99 Room Air 08/14/23 20:21 36.7 C 79 16 133/78 94 Room Air PG Care Time/CCT Total # of Minutes Spent Total Time Spent with Patient: Total time spent is greater than 50% in coordination of care (as documented) at patient's floor/unit and/or counseling patient: Coding Level of Care Code None Diagnoses Status post left knee replacement Z96.652
[2023-08-15] MEDS: INSULIN ASPART PER UNIT CHARGE SC SCH ×4 (08:28→20:58)
[2023-08-15] MEDS: LANTUS PER UNIT CHARGE SC SCH (20:58)
[2023-08-15] MEDS: ATORVASTATIN 10 MG TAB PO SCH (21:00)
[2023-08-15] MEDS: lisinopril 5 MG TAB PO SCH (21:00)
[2023-08-15] MEDS: ASPIRIN 81 MG ECTAB PO SCH (21:00)
[2023-08-15] MEDS: SENNA 8.6 MG TAB PO SCH (21:00)
[2023-08-16] MEDS: oxyCODONE HCL IR 5 MG TAB (IMMEDIATE RELEASE) PO PRN ×3 (04:53→13:46)
[2023-08-16] MEDS: TAMSULOSIN HCL 0.4 MG CAP PO SCH (07:41)
[2023-08-16] MEDS: MULTIVITAMIN TAB PO SCH (07:41)
[2023-08-16] MEDS: ASCORBIC ACID 500 MG TAB PO SCH (07:41)
[2023-08-16] MEDS: DOCUSATE SODIUM 100 MG CAP PO SCH (07:41)
[2023-08-16] MEDS: ACETAMINOPHEN 500 MG TAB PO SCH ×2 (07:41→13:45)
[2023-08-16] MEDS: RIVAROXABAN 10 MG TABLET PO SCH (07:41)
[2023-08-16] MEDS: INSULIN ASPART PER UNIT CHARGE SC SCH ×2 (07:43→12:00)
--- NOTE | 2023-08-16 10:07 | Pharmacy Report ---
Pharmacy Glycemic Short Note 2 - Date of Service August 16, 2023 - Glycemic Short BSG Results (Last 24 hours): 08/15/23 08/15/23 08/15/23 11:33 16:37 19:59 POC Glucose 196 H 157 H 211 H 08/16/23 07:39 POC Glucose 157 H OUTPATIENT ANTIDIABETIC REGIMEN: * Tresiba 90 units SQ HS * Humalog 30 units TIDM * glipizide 10mg PO daily * metformin 1gm PO BID * tirzepatide 7.5mg SQ weekly HbA1c: 7.96% (07/19/23) ASSESSMENT: 08/16 * BSGs mildly elevated at times yesterday. 103 units SQ insulin given over the last 24 hours while tolerating a diet * Fasting BSG 157 this AM; slightly elevated; Home dose of basal insulin was larger than what we are currently providing. Will increase basal dose slightly today * Post-prandial BSGs elevated 2 of 3 yesterday; will adjust Novolog CR 08/13 * Pt is a 63 year old male admitted POD#0 left total knee arthroplasty. History of DM2 on multiple anti hyperglycemic agents at home. Pharmacy consulted to assist with glycemic management inpatient. * BSGs 142-130mg/dL pre and post op. Diet ordered. * Dex 4mg IV administered intra-op and 8mg PO ordered X 1 tomorrow. * Will begin scaled Lantus BID depending on BSG tonight (+/- 20% of home dose divided BID) given ongoing steroids. Novolog severe stress scale ACHS with overnight checks. PLAN FOR INPATIENT GLYCEMIC CONTROL: * Hold outpatient oral diabetes medications * Basal insulin * Lantus 50 units Q HS * Bolus insulin * NovoLog per scale ACHS or Q6hrs while NPO * Goal Range: Low 110 mg/dL - High 140 mg/dL * Correction Factor: 15 mg/dL/unit * Nutritional / Prandial insulin per carb ratio of 1 unit per 3.5 grams CHO consumed
--- NOTE | 2023-08-16 11:15 | Orthopedic Progress Note ---
Date of Service August 16, 2023 Assessment & Plan (1) Status post left knee replacement: 1. Continue with current pain control regime 2. Continue with DOUG stockings and aspirin for DVT prophylaxis 3. Continue with PT/OT as directed 4. Still waiting for [facility] in a [facility] facility Subjective Patrick is a 63 y/o male post op day 3 from a left total knee arthroplasty. Patient was participating with PT and ambulating well. He still has some pain and weakness in his LLE but his pain is well controlled with medication. Review of Systems All systems reviewed & are unremarkable except as noted in HPI & below. Physical Exam Patient is up and ambulatory in his room. Does not look particularly uncomfortable. Examination of left leg reveals do well aligned. The dressing is clean dry and intact. He can dorsiflex and plantarflex his foot appropriately. He struggles with doing a straight leg raise. He is neurologically intact Results & Data Results & Data Laboratory Results . Diagnostic Findings . PG Care Time/CCT Total # of Minutes Spent Total Time Spent with Patient: Total time spent is greater than 50% in coordination of care (as documented) at patient's floor/unit and/or counseling patient: Coding Level of Care Code 29457 Post Operative Follow-Up Diagnoses Status post left knee replacement Z96.652
[2023-08-16] MEDS ORDERED: LANTUS PER UNIT CHARGE SC SCH (21:00)
--- NOTE | 2023-08-18 10:48 | Discharge Summary ---
Date of Service August 18, 2023 Discharge Data Procedures Performed Operation Date: 08/13/23 08:50 Actual Procedures p Left Total Knee Arthroplasty(Left) - Ulises Gonzalez MD Hospital Course (1) Status post left knee replacement: This is a 63 year old patient admitted on 08/13/23 and underwent total knee arthroplasty. He tolerated the procedure well and there were no complications. Transferred to the PACU post op and later to the orthopedic floor for further care. He was given ancef for antibiotic prophylaxis. He was also given DOUG stockings, SCDs, and xarelto for DVT prophylaxis. Hemoglobin, hematocrit, and vital signs were monitored during his hospital stay and remained stable. Did not require any blood transfusions. There were no complications during his hospital stay. By post op day #3 the patient was tolerating a diabetic diet, pain was reasonably controlled with oral pain medicine, and he was participating in physical therapy. On post op day #3 the patient was discharged to a rehab facility. He was given printed discharge instructions including prescriptions for extra strength tylenol, xarelto, cefadroxil, zofran, senokot, flomax, and oxycodone. Continue physical therapy, weight bearing as tolerated. Continue DOUG stockings. Follow up approximately 2 weeks post op or sooner if there are problems or concerns. Coding Level of Care Code None Diagnoses Status post left knee replacement Z96.652
== END 2023-08-16 14:13 ==
LOC: ASU 07:07 → 3E 07:07